=== PATIENT | male | born 1955 | race Caucasian/White ===

== ENCOUNTER 2018-09-30 05:37 | Day surgery (SDC) | payer OTHER ==
[~2018-09-30] VITALS: Ht 213.4 cm; Wt 204.1 kg
[~2018-09-30 05:37] MED LIST: ARIMIDEX PO; ASPIR 8181 MG PO; CHLORTHALIDONE25 MG PO; CIALIS5 MG PO; GLUCOPHAGE500 MG PO; MELOXICAM15 MG PO; PRESERVISION A1 EAC2 PO; ROSUVASTATIN CA10 MG PO; TESTOSTERO200 MG/1 M IM; ZEGERID 20 MG1 EACH PO
[2018-09-30 07:28] LABS: HEMOGLOBIN 16.5 gm/dL (14.0-18.0)
[2018-09-30 07:36] LABS: CALCIUM 9.5 mg/dL (8.5-10.1); CREATININE 1.3 mg/dL (0.7-1.3); POTASSIUM 3.1 mmol/L (3.5-5.1)
[2018-09-30 08:00] VITALS: BP 125/89
--- NOTE | 2018-09-30 08:36 | EKG ---
[address] [address] ELECTROCARDIOGRAM REPORT Name: REED VAZ Room #: 150-6 [facility] M.R.#: [id number] ������������������ Admission: 09/30/18 ������������������ Attend Phys: Gely Moura MD, Discharge: ������������������ Date of : 57 Report #: [id number] ����������������������������������������������������������������� [id number] THIS REPORT FOR: //name// [facility] Test Date: 2018-09-30 Test Time: 07:23:57 Pat Name: REED VAZ Department: Room: 150 6 Gender: M Cvicu Rn: RADHA : 1955 Requested By: Gely Moura Order Number: [id number] MD: Celio Cochran Measurements Intervals [place] Rate: 106 P: 18 AL: 147 QRS: 174 QRSD: 183 T: 19 QT: 397 QTc: 528 Interpretive Statements Sinus tachycardia Rightward axis Right bundle branch block Baseline wander in lead(s) III,V1,V2,V4,V6 Compared to ECG 04/22/1999 12:16:32 Intraventricular conduction delay now present Heart rate is increased Electronically Signed On 09-30-2018 8:36:27 CDT by Celio Cochran [email or web address] ��������������������������������������������� <ELECTRONICALLY SIGNED> ���������������������������������������� By: Celio Cochran MD, [facility] ��������������������������������������������� 09/30/18 0836 0723 0723 Celio Cochran MD, [facility] /EPI
[2018-09-30 17:07] VITALS: BP 128/77
[2018-09-30 17:30] VITALS: BP 129/81
[2018-09-30 18:00] VITALS: BP 144/81
[2018-09-30 18:30] VITALS: BP 128/77
[2018-09-30 18:53] VITALS: BP 107/62
[2018-10-01 04:12] VITALS: BP 107/66
[2018-10-01 05:15] LABS: HEMOGLOBIN 14.8 gm/dL (14.0-18.0); MCH 26.1 pg (26.0-34.0); MCHC 32.8 g/dL (28.0-37.0); MCV 79.6 fL (80.0-100.0); RBC 5.65 mil/uL (4.50-6.00); RDW 17.9 % (10.5-14.5); WBC 11.8 thou/uL (4.0-11.0)
[2018-10-01 05:44] LABS: CALCIUM 8.5 mg/dL (8.5-10.1); CREATININE 1.3 mg/dL (0.7-1.3); POTASSIUM 3.6 mmol/L (3.5-5.1)
[2018-10-01 07:58] VITALS: BP 99/63
[2018-10-01] MEDS ORDERED: HYDROCODONE-ACE15 ML PO (09:32)
[2018-10-01] MEDS ORDERED: ZOFRAN ODT4 MG DISSOLVE (09:32)
[2018-10-01 10:35] VITALS: BP 99/63
--- NOTE | 2018-10-01 11:23 | O ---
[facility] [place] [address] OPERATIVE REPORT Name: REED VAZ Room #: 453-P [facility] M.R.#: [id number] Admission: 09/30/18 ������������������ Attend Phys: Gely Moura MD, Discharge: ������������������ Date of : 57 Report #: [id number] THIS REPORT FOR: //name// CC: Doroteo Moura DATE OF SERVICE: 09/30/2018 PREOPERATIVE DIAGNOSES: 1. Morbid obesity with a BMI of 44.65. 2. Intermittent dysphagia with an indwelling lap band and port. 3. Type 2 diabetes mellitus. 4. Obstructive sleep apnea. 5. Hyperlipidemia. 6. Chronic fatigue. 7. Lumbago. 8. Chronic bilateral lower extremity joint pain. POSTOPERATIVE DIAGNOSES: 1. Morbid obesity with a BMI of 44.65. 2. Intermittent dysphagia with an indwelling lap band and port. 3. Type 2 diabetes mellitus. 4. Obstructive sleep apnea. 5. Hyperlipidemia. 6. Chronic fatigue. 7. Lumbago. 8. Chronic bilateral lower extremity joint pain. PROCEDURES PERFORMED: 1. Laparoscopic removal of adjustable gastric band and port. 2. Laparoscopic sleeve gastrectomy. 3. A thorough esophagogastroduodenoscopy (EGD). SURGEON: Gely Moura M.D. TRANSPORTATION ENGINEER: Israel Blandon M.D. ANESTHESIA: General endotracheal anesthesia. ESTIMATED BLOOD LOSS: Minimal (less than 5 mL). COMPLICATIONS: None appreciated. SPECIMENS: 1. Laparoscopic gastric sleeve resection specimen to pathology. 2. Adjustable gastric band and port to pathology. [facility] [address] [place] [address] OPERATIVE REPORT Name: REED VAZ Room #: 453-P [facility]..#: [id number] Admission: 09/30/18 ������������������ Attend Phys: Gely Moura MD, Discharge: ������������������ Date of : 57 Report #: [id number] INDICATIONS: The patient is a 62-year-old male who has been seen for his desire for weight loss surgery as he has had a very long history of obesity and has tried numerous weight loss attempts, all to no avail. The patient did undergo placement of a lap band several years ago with no significant long-term weight loss and now has the onset of intermittent dysphagia due to his lap band. Coupled with his multiple comorbid conditions and his large size, indication was for laparoscopic removal of his lap band with conversion to a sleeve gastrectomy today. This was entered into after obtaining clearance from his primary care physician, a psychologist and a financial planning assistant, who have not only all cleared him for bariatric surgery, but have also indicated the necessity for long-term resolution of his medical comorbid conditions as well as weight loss. DESCRIPTION OF PROCEDURE: After explaining the risks, benefits and alternatives of the procedure with the patient in detail in the preoperative holding area and obtaining written consent, the patient was brought to the operating room and placed supine on the operating room table. After conducting a thorough timeout procedure verifying correct patient and procedure, the patient was given general endotracheal anesthesia. Once adequate anesthesia was obtained, his SCDs were hooked up to pneumatic compression device and he was positioned in the low lithotomy position with his legs in the Yellofin stirrups. His abdomen was now prepped and draped in standard surgical sterile fashion. A 5 mL of 0.5% Marcaine with epinephrine were used to anesthetize the skin in the right upper quadrant, 5 cm lateral to the midline, and 5 cm inferior to the costal margin. A #15 bladed scalpel was used to create a 1.5 cm transverse skin incision at this location. A 15 mm Visiport was placed over 0 degree and 5 mm laparoscope was introduced through this incision site. Once intra-abdominal placement was verified visually, the obturator for the trocar and laparoscope were both removed and the abdomen was insufflated to 15 mmHg using carbon dioxide gas. The laparoscope was changed to a 5-mm 30-degree laparoscope, which was reintroduced through this trocar. The entire abdomen was evaluated to ensure no injury upon entry. I now placed 3 additional trocars in the left mid abdomen. A 5 mm trocar was placed 5 cm cephalad to the umbilicus and 2 cm to the patient's left, a 12 mm port was placed 5 cm lateral to that, and a final 5 mm port was placed in the extreme left lateral flank. All 3 additional trocars were placed under direct vision after anesthetizing the skin at each location with 5 mL of 0.5% Marcaine with epinephrine and I had created small skin nicks using #15 bladed scalpel. The laparoscope was removed, changed to the 5 mm port cephalad to the umbilicus and the patient was placed in steep reverse Trendelenburg position. I now placed a Tonie liver retractor in subxiphoid location by anesthetizing the skin at that location with 5 mL of 0.5% Marcaine with epinephrine and I created a small stab wound using a #15 bladed scalpel. The Tonie retractor was maneuvered through this defect where it was positioned up under the left lobe of the liver and was held up against the posterior aspect of the anterior abdominal wall and fixed into position with iron risk management internship device to stabilize it. This gave us full [facility] [address] [place] [address] OPERATIVE REPORT Name: REED VAZ Room #: 453-P REG [facility] M.R.#: [id number] Admission: 09/30/18 ������������������ Attend Phys: Gely Moura MD, Discharge: ������������������ Date of : 57 Report #: [id number] access to the stomach and hiatal regions. It appeared the gastrogastric plication from the lap band had come down and the lap band itself was mobile and rotating. Using the Harmonic scalpel, I was able to easily unroof the buckle for the lap band, which was unable to be disconnected secondary to the old style of band. The band itself was then elevated and transected with laparoscopic EndoShears, releasing the entire band, which was maneuvered through the retroesophageal space, disconnected from the port and removed from the abdomen through the 15 mm trocar under direct vision. I now took down the remaining scar tract from the gastrogastric plication using Harmonic scalpel, staying to the greater curve side of the area and once these adhesions were taken down, we had normalized the patient's stomach, which was extremely large in size. I now started my dissection after identifying our landmarks. The vein of Lainez was identified overlying the pylorus. I measured 4 cm proximal to this location and began taking down the short gastric arteries from this location all the way up the greater curvature of the stomach using Harmonic scalpel for hemostasis until I arrived upon the base of the left roel. I dissected anteriorly up to the left orel and then reflected the stomach anteriorly, taking down all posterior gastric attachments as well. Once we were happy with the dissection, the laparoscope was shown to run along the lesser curvature of the stomach and using the [place] 60 mm stapler with a black load and utilizing Nadira-Strips placed on them, this was entered into the abdomen through the 15 mm port. This first firing started at the location 4 cm proximal to the pylorus and fired right along, but not extremely tight to the scope, so as not to cause stricturing, especially at the incisura. Another firing of an additional black load again utilizing Li's Nadira-Strip buttressing material was carried out following the scope as a 34-Italian bougie. Six additional firings, all of green loads, all utilizing Li's Nadira-Strip buttressing material were carried out following the scope as a bougie all the way up to the left roel until the stomach was completely transected. There was a gentle ooze from the staple line in the distal aspect and laparoscopic clip free lance artist was used to maintain complete hemostasis there. The resection specimen was now removed out of the abdomen using laparoscopic grasper through the 15 mm fascial incision. I then closed 15 mm and 12 mm fascial incisions using 0 PDS suture on a Juan Pablo-Luciana suture passer device under direct vision. Each of these were tied down under direct vision. I now utilized 14 mL of Tisseel on the IntegenXspray device to coat the entirety of the staple line with fibrin glue. Once this was dry, the Tonie liver retractor was about to be removed; however, we had to perform a removal EGD at this juncture. I broke scrub and using the [employer] upper endoscope, I was able to slowly and carefully withdraw the scope which showed no evidence of duodenitis, gastritis, esophagitis, mass lesions or ulcerations. The EGD scope was now removed via the oropharynx, passed off the field. The Tonie liver retractor was removed under direct vision. The trocar was removed and the sutures were tied down completely repairing those defects without issue. The abdomen was now fully desufflated. All remaining trocars were removed under direct vision. Skin overlying the lap band port site was now injected with 10 mL of 0.5% Marcaine with epinephrine [address] [address] OPERATIVE REPORT Name: REED VAZ Room #: 453-P REG [facility] M.R.#: [id number] Admission: 09/30/18 ������������������ Attend Phys: Gely Moura MD, Discharge: ������������������ Date of : 57 Report #: [id number] and I created a 3 cm transverse skin incision using a #15 bladed scalpel. Electrocautery was used to carry this down through skin and subcutaneous tissues until I arrived upon the anterior aspect of the port, for which the scar capsule was opened anteriorly allowing me to deliver the port into the bed of the wound, which was removed after freeing the sutures from the abdominal wall. I then closed the scar capsule using 0 PDS suture in standard running fashion. All skin incisions were now closed using 4-0 Monocryl in standard subcuticular fashion and Dermabond glue was applied to all skin wounds. The corner of the resection specimen that had been removed was trimmed away and normal saline was passively instilled into the resection specimen itself yielding 2350 mL in the resection specimen itself passively. At the end of the procedure, all instrument, needle and sponge counts were correct. The patient tolerated the procedure without incident, was awakened in the operating room and transitioned to the recovery room in stable condition with no apparent complications. ��������������������������������������������� <ELECTRONICALLY SIGNED> ���������������������������������������� By: Gely Moura MD, FACS ��������������������������������������������� 10/01/18 1123 1550 1627 Gely Moura MD, FACS /nt
--- NOTE | 2018-10-01 17:06 | PATH ---
[facility] [address] [address] PATHOLOGY RPT PROCEDURE Name: ANIBAL VAZ Room #: DEP [facility] M.R.#: [id number] ������������������ Admission: 09/30/18 ������������������ Date of : 57 Discharge: 10/01/18 Report #: [id number] Path Case #: [id number] [facility] Accession Number: [id number] . 01 Material submitted: . PART A: foreign object - LAP BAND PART B: stomach - PORTION OF STOMACH - GASTRIC SLEEVE . 01 Clinical history: . Morbid obesity. . 02 Diagnosis: A. Lap band, removal: - 46.5 cm rubbery tube attached to a Port-A-Cath device with a diameter 0f 3.1 cm (gross exam only). . B. Stomach, portion of stomach, partial sleeve gastrectomy: - Scattered rare fundic gland polyps; negative for dysplasia or malignancy. - Background stomach showing no significant diagnostic abnormalities, history of morbid obesity. (IUV:jerome; 10/01/2018) QMS/10/01/2018 . 02 Electronically signed: . Shelly Ashley MD, Pathologist NPI- [id number] . 01 Gross description: . A. Received fresh labeled "Anibal Vaz, lap band" is a portion of surgical hardware consisting of an annular duarte-white rubbery device (5.8 x 5.0 x 1.5 cm), and attached duarte-white rubbery tube (46.5 x 0.4 cm), and a duarte-white Port-A-Cath attachment (3.1 x 3.0 x 1.7 cm). The Port-A-Cath has the identifying yost: "Port-A-Cath" and "[id number]". No other identifying yost are present on the specimen. The annular portion of hardware displays a complete cut on one aspect. No other defects or abnormalities are identified. No attached soft tissue is present. The specimen is received for gross identification only. . B. Received in formalin labeled "Anibal Vaz, portion of stomach (gastric sleeve)" is a partial gastrectomy specimen measuring 26.2 x 13.2 x 2.8 cm. The external surface is pink-duarte and smooth and displays multiple staple lines measuring 6.0-7.7 cm. The staple lines are removed and the specimen is opened to reveal pink-red mucosa with unremarkable folding. Multiple polyps (15-20) are identified within the gastric mucosa, ranging from 0.2-0.4 cm in greatest dimension. Freight Manager sections including polyps are submitted in cassettes B1-B3. ([facility]; [address] [address] PATHOLOGY RPT PROCEDURE Name: ANIBAL VAZ KASSANDRA Room #: DEP [facility]..#: [id number] ������������������ Admission: 09/30/18 ������������������ Date of : 57 Discharge: 10/01/18 Report #: [id number] Path Case #: [id number] 09/30/2018) SYC/SYC . 02 Pathologist provided ICD-10: K31.7, E66.01 . 02 CPT . 493071, 044214 Specimen Comment: A courtesy copy of this report has been sent to Specimen Comment: [phone], , . Specimen Comment: Report sent to ,DR PENG / DR SCHWAB Performed at: [address] [facility] [address], [place] [id number] MD Neo Gomez MD Phone: [phone] Performed at: [address] [facility] [address] [id number] MD Shelly Ashley MD Phone: [phone]
== END 2018-10-01 13:15 | disposition home or self-care (01) ==
LOC: OR 05:37 → TBA 05:37 → OR 11:29 → 4W 16:32 → ENTRNSPT 10-01 12:10 → EDTRNSPTSTS 10-01 12:19 → OR 10-01 13:15
PROVIDERS: Surgery
DX: E66.01 Morbid (severe) obesity due to excess calories (principal); R13.19 Other dysphagia; G47.33 Obstructive sleep apnea (adult) (pediatric); E11.9 Type 2 diabetes mellitus without complications; E78.5 Hyperlipidemia, unspecified; E78.00 Pure hypercholesterolemia, unspecified; M79.662 Pain in left lower leg; M79.661 Pain in right lower leg; G89.29 Other chronic pain; K21.9 Gastro-esophageal reflux disease without esophagitis; R53.82 Chronic fatigue, unspecified; Z68.41 Body mass index [BMI] 40.0-44.9, adult; Z87.891 Personal history of nicotine dependence; Z87.442 Personal history of urinary calculi; Z98.890 Other specified postprocedural states; Z79.899 Other long term (current) drug therapy; Z88.0 Allergy status to penicillin; Z88.2 Allergy status to sulfonamides; Z88.8 Allergy status to other drugs, medicaments and biological substances; Z79.82 Long term (current) use of aspirin
CPT/HCPCS: 10047; 50010; 50101; 50222; 50249; 50386; 50555; 50558; 50739; 50740; 50962; 51436; 51437; 52182; 52265; 52266; 53307; 53311; 54022; 54118; 55245; 56462; 56525; 56526; 57092; 62110; 62900; 65131; 70005

== ENCOUNTER 2019-09-28 14:51 | Emergency (ER) | payer BC, OTHER ==
[~2019-09-28] VITALS: Ht 213.4 cm; Wt 167.8 kg
[~2019-09-28 14:51] MED LIST changes: +HYDROCODONE-ACE15 ML PO; +ZOFRAN ODT4 MG DISSOLVE
[2019-09-28 15:38] LABS: URINE BILIRUBIN 3+ (Negative); URINE BLOOD 3+ (Negative); URINE CLARITY CLOUDY; URINE COLOR RED; URINE GLUCOSE-RANDOM* 1+ (Negative); URINE KETONES 1+ (Negative); URINE PROTEIN (DIPSTICK) 3+ (Negative); URINE UROBILINOGEN >= 8.0 E.U./dl (0.2-1.0)
[2019-09-28] MEDS ORDERED: FLOMAX0.4 MG PO (15:47)
[2019-09-28 15:50] LABS: ICTOTEST (BILI CONFIRMATORY) Positive (Negative); URINE LEUKOCYTES-REFLEX 3+ (Negative); URINE NITRITE-REFLEX POSITIVE (Negative)
[2019-09-28 15:51] LABS: BACTERIA-REFLEX >30 Many /HPF (None Seen); CASTS None Seen /LPF (None Seen); CRYSTALS None Seen /LPF (None Seen); URINE RBC >20 Many /HPF (0-2); URINE WBC-REFLEX >25 Many /HPF (0-5)
[2019-09-28 15:52] LABS: SQUAMOUS 0-3 Few /LPF (0-3)
[2019-09-28 15:55] LABS: ABSOLUTE NEUTROPHILS 8.4 thou/uL (1.4-8.2); BASOPHILS 0.5 % (0.0-2.0); EOSINOPHILS 0.6 % (0.0-3.0); HEMATOCRIT 49.5 % (42.0-52.0); HEMOGLOBIN 16.8 gm/dL (14.0-18.0); LYMPHOCYTES 8.3 % (24.0-44.0); MCHC 33.9 g/dL (28.0-37.0); MCV 85.6 fL (80.0-100.0); MONOCYTES 6.7 % (1.0-8.0); PLATELET COUNT 304 thou/uL (150-400); POLYS 83.9 % (36.0-66.0); RBC 5.79 mil/uL (4.50-6.00); RDW 15.3 % (10.5-14.5)
[2019-09-28 16:01] LABS: CALCIUM 9.8 mg/dL (8.5-10.1); CREATININE 1.4 mg/dL (0.7-1.3); POTASSIUM 3.3 mmol/L (3.5-5.1)
[2019-09-28 17:35] VITALS: BP 125/74
== END 2019-09-28 17:54 | disposition home or self-care (01) ==
LOC: ER 14:51
PROVIDERS: Nurse Practitioner Family
DX: N39.0 Urinary tract infection, site not specified (principal); R31.9 Hematuria, unspecified; K59.00 Constipation, unspecified; K21.9 Gastro-esophageal reflux disease without esophagitis; E11.9 Type 2 diabetes mellitus without complications; E66.01 Morbid (severe) obesity due to excess calories; E78.00 Pure hypercholesterolemia, unspecified; Z88.0 Allergy status to penicillin; Z88.1 Allergy status to other antibiotic agents; Z88.8 Allergy status to other drugs, medicaments and biological substances; Z79.82 Long term (current) use of aspirin; Z79.899 Other long term (current) drug therapy; Z87.442 Personal history of urinary calculi; Z16.24 Resistance to multiple antibiotics; Z90.89 Acquired absence of other organs